=== PATIENT | male | born 1940 | race Caucasian/White ===

== ENCOUNTER 2021-07-02 20:34 | Observation (INO) ==
[2021-07-02 20:53] LABS: Basophils # 0.1 10*3/uL (0.0-0.2); Basophils % 0.7 % (0.0-0.8); Eosinophils # 0.2 10*3/uL (0.0-0.87); Eosinophils % 2.8 % (0.00-10.9); Hematocrit 43.7 VOL% (42.0-52.0); Hemoglobin 15.3 GM/DL (14.0-18.0); Immature Granulocytes % 0.2 %; Immature Granulocytes Absolute 0.02 #; Lymphocytes # 3.3 10*3/uL (1.4-4.0); Lymphocytes % 37.8 % (21.2-54.2); Mean Corpuscular Volume 90.7 FL (87-102); Mean Platelet Volume 8.4 FL (9.6-12.0); Monocytes % 11.7 % (1.7-12.7); Neutrophils % 46.8 % (38.7-73.9); Platelet Count 220 T/CUMM (130-400); Red Blood Count 4.82 MC/CUMM (3.8-5.5); Red Cell Distribution Width 12.3 % (9.3-17.3); White Blood Count 8.6 T/CUMM (4-12)
[2021-07-02 21:22] LABS: Albumin 3.7 G/DL (3.4-5.0); Bilirubin,Total 0.5 MG/DL (0.20-1.00); Osmolality,Calculated 279.8 MOS/KG (273-304); Potassium 3.8 MMOL/L (3.5-5.1); Total Protein 7.6 G/DL (6.4-8.2)
[2021-07-02] MEDS ORDERED: ENOXAPARIN 100 MG/ML SYRINGE SUBCUT STA (21:35)
[2021-07-02] MEDS ORDERED: ASPIRIN 325 MG TABLET PO STA (21:35)
[2021-07-02] MEDS ORDERED: DILTIAZEM 50 MG/10 ML VIAL IV STA (21:35)
[2021-07-02] MEDS ORDERED: DILTIAZEM INJ 100 MG in SODIUM CHLORIDE 0.9% 100 ML IV SCH (22:00)
[2021-07-02 22:32] LABS: Free T4 (Free Thyroxine) 1.2 NG/DL (0.76-1.46); Thyroid Stimulating Hormone 2.5 uIU/ml (0.358-3.74)
[2021-07-03] MEDS ORDERED: DILTIAZEM 50 MG/10 ML VIAL IV STA (00:32)
[2021-07-03] MEDS ORDERED: SIMETHICONE CHEW 125 MG TABLET PO PRN (00:48)
[2021-07-03] MEDS ORDERED: DOCUSATE SODIUM 100 MG CAPSULE PO PRN (00:48)
[2021-07-03] MEDS ORDERED: ACETAMINOPHEN 325 MG TABLET PO PRN (00:48)
[2021-07-03] MEDS ORDERED: ONDANSETRON 4 MG/2 ML VIAL IV PRN (00:48)
[2021-07-03] MEDS ORDERED: hydrALAZINE 20 MG/1 ML VIAL IV PRN (00:48)
[2021-07-03 03:52] LABS: Basophils # 0.1 10*3/uL (0.0-0.2); Basophils % 0.9 % (0.0-0.8); Eosinophils # 0.2 10*3/uL (0.0-0.87); Eosinophils % 2.7 % (0.00-10.9); Hematocrit 40.7 VOL% (42.0-52.0); Hemoglobin 14.1 GM/DL (14.0-18.0); Immature Granulocytes % 0.1 %; Immature Granulocytes Absolute 0.01 #; Lymphocytes % 42.2 % (21.2-54.2); Mean Corpuscular HGB Conc 34.6 GM/DL (32-36); Mean Corpuscular Volume 92.1 FL (87-102); Mean Platelet Volume 8.8 FL (9.6-12.0); Monocytes % 12.4 % (1.7-12.7); Neutrophils % 41.7 % (38.7-73.9); Platelet Count 200 T/CUMM (130-400); Red Blood Count 4.42 MC/CUMM (3.8-5.5); Red Cell Distribution Width 12.3 % (9.3-17.3)
[2021-07-03 04:20] LABS: Osmolality,Calculated 278.7 MOS/KG (273-304); Potassium 3.7 MMOL/L (3.5-5.1); Risk Ratio 3.06; VLDL Cholesterol 38.2 MG/DL
[2021-07-03] MEDS ORDERED: CETIRIZINE 10 MG TABLET PO PRN (07:27)
[2021-07-03] MEDS ORDERED: POTASSIUM CHLORIDE 20 MEQ TABLET PO ONE (08:30)
[2021-07-03] MEDS: ASPIRIN EC 81 MG TABLET PO SCH ×2 (08:58→21:48)
[2021-07-03] MEDS ORDERED: METOPROLOL SUCCINATE XL 100 MG TABLET PO SCH (09:00)
[2021-07-03] MEDS: CHOLECALCIFEROL 1,000 UNIT TABLET PO SCH (09:19)
[2021-07-03] MEDS: ASCORBIC ACID 500 MG TABLET PO SCH ×2 (09:19→21:48)
[2021-07-03] MEDS: EZETIMIBE 10 MG TABLET PO SCH (09:19)
[2021-07-03] MEDS: LOSARTAN 50 MG TABLET PO SCH (09:19)
[2021-07-03] MEDS: SOTALOL 80 MG TABLET PO SCH ×2 (09:19→21:48)
[2021-07-03] MEDS: APIXABAN 5 MG TABLET PO SCH ×2 (09:46→21:48)
[2021-07-03] MEDS: ROSUVASTATIN 10 MG TABLET PO SCH (09:46)
[2021-07-03] MEDS: PANTOPRAZOLE 40 MG TABLET PO SCH (09:47)
[2021-07-03] MEDS ORDERED: INFLUENZA VIRUS VACCINE 0.5 ML SYRINGE IM ONE (17:10)
[2021-07-03] MEDS ORDERED: NON-FORMULARY MEDICATION (Diphenhydramine-Acetaminophen [Tylenol Pm Extra Strength] 25-500 PO SCH (21:00)
[2021-07-04] MEDS ORDERED: LEVOTHYROXINE 100 MCG TABLET PO SCH (06:30)
[2021-07-04] MEDS: PANTOPRAZOLE 40 MG TABLET PO SCH (10:19)
[2021-07-04] MEDS: ROSUVASTATIN 10 MG TABLET PO SCH (10:19)
[2021-07-04] MEDS: ASPIRIN EC 81 MG TABLET PO SCH (10:19)
[2021-07-04] MEDS: LOSARTAN 50 MG TABLET PO SCH (10:19)
[2021-07-04] MEDS: CHOLECALCIFEROL 1,000 UNIT TABLET PO SCH (10:19)
[2021-07-04] MEDS: SOTALOL 80 MG TABLET PO SCH (10:19)
[2021-07-04] MEDS: APIXABAN 5 MG TABLET PO SCH (10:19)
[2021-07-04] MEDS: ASCORBIC ACID 500 MG TABLET PO SCH (10:19)
[2021-07-04] MEDS: EZETIMIBE 10 MG TABLET PO SCH (10:20)
[2021-07-04 14:49] VITALS: BP 165/69
== END 2021-07-04 14:18 | disposition home or self-care (01) ==
LOC: N.EDINP 20:34 → N.ED 20:34 → N.TELES 07-03 16:01
PROVIDERS: ADMIT Internal Medicine; ATTEND Internal Medicine